=== PATIENT | male | born 1995 | race African-American/Black ===

== ENCOUNTER 2022-08-23 22:51 | Emergency (ER) | payer SELFPAY ==
[~2022-08-23] VITALS: Ht 172.7 cm; Wt 75.0 kg
[2022-08-24 00:39] LABS: BASOPHILS % 0.2 % (0.0-2.0); EOSINOPHILS % 0.7 % (0.0-5.0); HEMATOCRIT. 39.8 % (42.0-52.0); HEMOGLOBIN. 13.3 g/dL (14.0-18.0); LYMPHOCYTES % 15.1 % (20.0-50.0); MEAN CORPUSCULAR HEMOGLOBIN 32.1 pg (28.0-32.0); MEAN CORPUSCULAR VOLUME 95.8 fL (80.0-94.0); MEAN PLATELET VOLUME 7.6 fl (7.4-10.4); MONOCYTES % 5.1 % (2.0-8.0); NEUTROPHILS % 78.9 % (40.0-76.0); PLATELET 200 x1000/uL (130-400); RED BLOOD CELL COUNT 4.15 mill/uL (4.7-6.1); RED CELL DISTRIBUTION WIDTH 14.7 % (11.6-14.6)
[2022-08-24 00:48] LABS: CHLORIDE 105 mEq/L (98-107)
[2022-08-24 00:54] LABS: ETHANOL BLOOD < 10 mg/dL
[2022-08-24 01:25] LABS: *AMPHETAMINES SCREEN URINE PRESUMTIVE POSITIVE (NEGATIVE); *BARBITURATES SCREEN URINE NEGATIVE (NEGATIVE); *BENZODIAZEPINES SCREEN URINE PRESUMTIVE POSITIVE (NEGATIVE); *COCAINE SCREEN URINE PRESUMTIVE POSITIVE (NEGATIVE); CANNABINOID URINE SCREEN PRESUMTIVE POSITIVE (NEGATIVE); METHADONE URINE SCREEN NEGATIVE (NEGATIVE); OPIATES URINE SCREEN NEGATIVE (NEGATIVE); PHENCYCLIDINE URINE SCREEN NEGATIVE (NEGATIVE)
[2022-08-24 02:30] VITALS: BP 102/59
[2022-08-24] MEDS ORDERED: NALO4SPR BOTHNSTRLS (02:31)
== END 2022-08-24 02:59 | disposition home or self-care (01) ==
LOC: ER 22:51
DX: T50.901A Poisoning by unspecified drugs, medicaments and biological substances, accidental (unintentional), initial encounter (principal); R41.82 Altered mental status, unspecified; F12.10 Cannabis abuse, uncomplicated; F14.10 Cocaine abuse, uncomplicated; F16.10 Hallucinogen abuse, uncomplicated; Y92.810 Car as the place of occurrence of the external cause
CPT/HCPCS: 36415; 71045; 80048; 80305; 80320; 85025; 93005; 99285; G0480